=== PATIENT | male | born 1950 | race African-American/Black ===

== ENCOUNTER 2023-12-27 17:50 | Emergency (ER) | payer MEDICARE ==
[~2023-12-27] VITALS: Ht 172.7 cm; Wt 111.0 kg
[2023-12-27 18:01] VITALS: TEMP 98.2; O2SAT 100
[2023-12-27 19:57] VITALS: BP 118/68; PULSE 71; RESP 16
== END 2023-12-27 19:58 | disposition home or self-care (01) ==
LOC: ER 17:50
DX: S09.90XA Unspecified injury of head, initial encounter (principal); S60.512A Abrasion of left hand, initial encounter; E11.9 Type 2 diabetes mellitus without complications; Y03.0XXA Assault by being hit or run over by motor vehicle, initial encounter; Y92.89 Other specified places as the place of occurrence of the external cause; Y99.8 Other external cause status
CPT/HCPCS: 99284